=== PATIENT | male | born 1970 | race Caucasian/White ===

== ENCOUNTER 2018-12-07 08:36 | Day surgery (SDC) | payer MEDICAID ==
[~2018-12-07] VITALS: Ht 182.9 cm; Wt 106.5 kg
[~2018-12-07 08:36] MED LIST: ALLO100T PO; ENAL5TAB85 PO
[2018-12-07 09:00] VITALS: BP 129/98
[2018-12-07] MEDS ORDERED: NICO1PAT36 TOP (09:33)
[2018-12-07] MEDS ORDERED: HYDR-4353 PO (09:33)
[2018-12-07] MEDS ORDERED: FAMO40TA7 PO (09:33)
[2018-12-07] MEDS ORDERED: normal saline 1000ml 1,000 ML IV PRN (10:20)
[2018-12-07] MEDS ORDERED: LIDOcaine 1%/PF 5ML 10 MG/ML VIAL SQ ONE (10:30)
[2018-12-07] MEDS ORDERED: midazolam 2 mg/2 ml injection IV PRN (10:30)
[2018-12-07] MEDS ORDERED: heparin sodium, porcine/PF 100unit/ml 5ML syringe ICATH ONE (10:30)
[2018-12-07] MEDS ORDERED: fentaNYL/PF 50MCG/1 ML 2ML syringe IV PRN (10:30)
[2018-12-07] MEDS ORDERED: LIDOcaine 1%/PF 5ML 10 MG/ML VIAL ONE (10:31)
[2018-12-07] MEDS ORDERED: heparin sodium, porcine/PF 100unit/ml 5ML syringe ONE (10:31)
[2018-12-07] MEDS ORDERED: midazolam 2 mg/2 ml injection ONE (10:32)
[2018-12-07] MEDS ORDERED: fentaNYL/PF 50MCG/1 ML 2ML syringe ONE (10:32)
[2018-12-07 11:40] VITALS: BP 138/92
[2018-12-07 11:55] VITALS: BP 142/97
[2018-12-07 12:10] VITALS: BP 146/94
[2018-12-07 12:25] VITALS: BP 151/92
[2018-12-07 12:40] VITALS: BP 149/96
== END 2018-12-07 12:40 | disposition home or self-care (01) ==
LOC: SSTAY O 08:36
PROVIDERS: ATTEND Radiology Vascular & Interventional Radiology
DX: C15.5 Malignant neoplasm of lower third of esophagus (principal); I10 Essential (primary) hypertension; J44.9 Chronic obstructive pulmonary disease, unspecified; M10.9 Gout, unspecified; Z98.890 Other specified postprocedural states; F17.290 Nicotine dependence, other tobacco product, uncomplicated; Z79.899 Other long term (current) drug therapy
CPT/HCPCS: 36561; 76937; 77001; 99152; 99153; C1769; C1788; C1894; J1642; J2250; J3010; J7030